=== PATIENT | female | born 1960 | race Two or more races ===

== ENCOUNTER 2022-07-04 16:36 | Emergency (ER) | payer BC ==
[2022-07-04 16:47] VITALS: BP 144/81; PULSE 90; RESP 18; TEMP 97.7; BMI 28.0
[2022-07-04] MEDS ORDERED: DEXAMETHASONE SOD PHOSPHATE 10 MG/1 ML VIAL PO ONE (17:27)
[2022-07-04] MEDS ORDERED: DEXAMETHASONE SOD PHOSPHATE 10 MG/1 ML VIAL ONE (17:28)
== END 2022-07-04 17:34 | disposition home or self-care (01) ==
LOC: JER 16:36 → JERFT 16:36
DX: J04.0 Acute laryngitis (principal)
CPT/HCPCS: 99283-25; J1100